=== PATIENT | female | born 1985 | race Caucasian/White ===

== ENCOUNTER 2019-03-26 10:53 | Emergency (ER) | payer BC ==
[~2019-03-26] VITALS: Ht 157.5 cm; Wt 106.6 kg
[2019-03-26] MEDS ORDERED: EFFEXOR XR150 MG PO (10:58)
[2019-03-26] MEDS ORDERED: CLONAZEPAM 1 MG1 M1 PO (10:59)
[2019-03-26] MEDS ORDERED: LEVAQUIN 750 M750 MG PO (12:09)
[2019-03-26] MEDS ORDERED: DIFLUCAN200 MG PO (12:09)
[2019-03-26 12:20] VITALS: BP 132/71
== END 2019-03-26 12:20 | disposition home or self-care (01) ==
LOC: ER 10:53
DX: J32.9 Chronic sinusitis, unspecified (principal); Z90.49 Acquired absence of other specified parts of digestive tract; Z98.890 Other specified postprocedural states